=== PATIENT | male | born 1945 | race Caucasian/White ===

== ENCOUNTER 2018-01-13 02:52 | Day surgery (SDC) | payer MEDICARE, OTHER ==
[2018-01-13] VITALS (7 sets, daily range): BP systolic 101–128; BP diastolic 69–76
[~2018-01-13] VITALS: Ht 177.8 cm; Wt 90.7 kg
[~2018-01-13 02:52] MED LIST: ASC500 PO; ASP325 PO; CHOL100060 PO; DAPA10TA PO; DOC100 PO; LISI5TAB25 PO; LOR5 PO; METF-420 PO; MULT1TAB64 PO; OMEG-11 PO; PER PO; PHENA200 PO; PIOG30TA3 PO; SIMV-42 PO; SIMV-49 PO; SITA1TBM4 PO; TAMS0.4C69 PO; TOLT4CAP13 PO; VITA1CAP46 PO; VITE400 PO
[2018-01-13] MEDS ORDERED: LIDOCAINE/SOD BICARB 8.4% SYR ID ONE (13:50)
[2018-01-13] MEDS ORDERED: NORMOSOL R SOLN(*) 1000 ML BAG 1,000 ML IV PRN (13:50)
== END 2018-01-13 16:09 | disposition home or self-care (01) ==
LOC: OR 02:52
PROVIDERS: ATTEND Family Medicine
DX: Z12.11 Encounter for screening for malignant neoplasm of colon (principal); Z86.010 Personal history of colon polyps
CPT/HCPCS: 36416; 82948

== ENCOUNTER → 2018-08-04 | Outpatient (CLI) | payer MEDICARE, OTHER ==
[~2018-08-04] MED LIST changes: -PIOG30TA3 PO; +PIOG30TA71 PO
--- NOTE | 2018-08-04 11:05 | RADIOLOGY IMAGING REPORT ---
FACILITY: [facility] PATIENT NAME: Da Chase : 1945 MR: [id number] V: [id number] EXAM DATE: ORDERING PHYSICIAN: JESSICA SHARMA TECHNOLOGIST: Location: [facility] Patient: Da Chase : 1945 Visit/Account:[id number] Date of Sevice: 08/04/2018 ABDOMEN PELVIS ESWL CYSTO W/O HISTORY: History of kidney stones, follow-up TECHNIQUE: Axial images acquired through the abdomen/pelvis. Coronal and sagittal reformatting also performed. No IV contrast administered.Dose Lowering Technique One of the following dose optimization techniques was utilized in the performance of this exam: Autom ated exposure control; adjustment of the mA and/or kV according to the patient's size; or use of an i terative reconstruction technique. Specific details can be referenced in the facility's radiology C T exam operational policy. COMPARISON: CT August 19, 2011 FINDINGS: Visualized lung bases: There Is a tiny calcified granuloma in the anterior right lower lobe Hepatobiliary: Faint radiopaque layering material within the gallbladder may represent stones or slu dge. There is no evidence of bony ductal dilatation. Spleen: Negative. Adrenals: Negative. Pancreas: Fatty replacement of the head Kidneys ureters and bladder: 3.5 cm cyst upper pole the left kidney is slightly increased in size pre viously measuring 2.9 cm. no calculi identified in the left renal collecting system nor left ureter. There is a 2 mm calcification lower pole calyx of the right kidney without evidence of obstruction. No right ureteral calculi are seen. Genitalia: There Is a mild impression along the floor the bladder from the prostate gland. GI: Moderate amount of fecal material seen throughout colon which can be seen with constipation. Th e stomach is distended with particulate material some of which is hyperdense which may represent a re cent meal. There are small bowel feces present suggesting stasis Vessels/spaces/nodes: There are scattered mesenteric lymph nodes that appears similar when compared to the prior study. There are mild atherosclerotic calcifications in the abdominal aorta and branch vessels Bones/soft tissues: There spondylotic changes of the thoracolumbar spine. Degenerative changes of b oth hip joints also noted. There is a small umbilical hernia containing fat Additional findings: None pertinent. IMPRESSION: Faint radiopaque layering material within the gallbladder may represent stones or sludge. 2 mm calcification lower pole calyx of the right kidney without evidence of obstruction Moderate amount of fecal material throughout colon which can seen with constipation. There are small bowel feces present suggesting stasis Stomach is distended with particulate material some of which is hyperdense which may represent a rece nt meal. Clinical correlation needed Additional chronic findings as described Report Dictated By: Toña Marrero MD at 08/04/2018 10:49 AM Report E-Signed By: Toña Marrero MD at 08/04/2018 11:01 AM WSN:[email or web address]
== END ==
LOC: CT 01:29
PROVIDERS: ATTEND Urology
DX: N20.0 Calculus of kidney (principal)
CPT/HCPCS: 74176